=== PATIENT | female | born 1955 | race Caucasian/White ===

== ENCOUNTER → 2016-12-06 | Outpatient (CLI) | payer BC ==
[~2016-12-06] MED LIST: ATOR10TA20 PO; DEXA4TAB PO; DOCU-132 PO; FISH1CAP2 PO; HYDR-2164 PO; HYDR-3989 PO; HYDR-4246 PO; IOHEXOL 300 MG/ML 100ml INJECTION ONE; MAGN250T33 PO; MELO-267 PO; MULT-806 PO; NORMAL SALINE 100 ML ONE; POTA99TA4 PO; SALINE FLUSH 10ml SYRINGE ONE; VENL-68 PO; [UNRECOGNIZED DRUG - CODE] PO; [UNRECOGNIZED DRUG - CODE] PO
--- NOTE | 2016-12-06 14:17 | DI ---
Indication: ITS.REASON: C50.211 BREAST CA; N95.1 Menopausal and female climacteric states PROCEDURE: CT CHEST/ABDOMEN W/C: Comparison: None Technique: Axial CT images were performed through the chest, abdomen after the administration of intravenous contrast. Coronal and sagittal two-dimensional reformats. Automated Exposure Control and Iterative Reconstruction dose reducing techniques were utilized. Contrast: Omnipaque [address] scan was performed using radiation dose-reduction techniques. CT CHEST FINDINGS: Postsurgical changes of right mastectomy. Left-sided chest port is in place. Cardiovascular: The heart size is normal. No pericardial effusion is present. Lymph nodes: There are no enlarged axillary, hilar, or mediastinal lymph nodes. Lungs: The lungs are normal. Bones: There are no suspicious or destructive osseous lesions. Anterior cervical disc fusion is noted. IMPRESSION: 1. Postoperative changes of right mastectomy. 2. No evidence for thoracic sanchez or pulmonary metastases. CT ABDOMEN AND PELVIS FINDINGS: CT ABDOMEN LUNG BASES: Unremarkable LIVER: There is a nodular density projecting off the posterior medial margin of the right hepatic lobe. The nodule measures 2.1 x 2.9 cm with question of mild enhancement. The density is just superior to the right kidney. Recommend abdominal ultrasound to further evaluate the hepatic lesion. Three-phase contrast-enhanced CT scan may also be beneficial to further evaluate. CT-guided biopsy could be done if clinically indicated. SPLEEN: Unremarkable. GALLBLADDER: Unremarkable. PANCREAS: Unremarkable. ADRENAL GLANDS: Unremarkable. KIDNEYS: Unremarkable. AORTA: Unremarkable. LYMPH NODES: Unremarkable. STOMACH BOWEL LOOPS: Unremarkable. PERITONEAL CAVITY: There is no abdominal or pelvic inflammatory mass or ascites. OSSEOUS STRUCTURES: No suspicious or destructive osseous lesions are identified. IMPRESSION: 1. There is a nodular density projecting off the posterior medial margin of the right hepatic lobe measuring 2.1 x 2.9 cm with question of mild enhancement. The structure is located superior to the right kidney. Recommend abdominal ultrasound to further evaluate. A three-phase contrast-enhanced CT scan may be beneficial to further evaluate as well. CT-guided biopsy could be done if clinically indicated. 2. There is no abdominal lymphadenopathy. .
--- NOTE | 2016-12-06 20:42 | ECHOF ---
ECHOCARDIOGRAM DATE OF PROCEDURE December 06, 2016 This is a two-dimensional echo with spectral Doppler, color-flow and M-mode. It was obtained in a patient with cancer, on chemotherapy. Left atrial dimension is normal. Left ventricular end-diastolic dimension is normal. Left ventricular wall thickness is normal. LV systolic function is normal with ejection fraction of 65%. Right atrium is normal. Right ventricle is normal. Aortic root dimension is normal. Mitral, aortic, tricuspid, pulmonary valves are morphologically normal with mild aortic insufficiency and mild tricuspid regurgitation with normal estimated pulmonary artery systolic pressure of 21. There is no pericardial effusion. IMPRESSION 1. Normal LV systolic function with ejection fraction of about 65%. 2. Mild aortic insufficiency. 3. Mild tricuspid regurgitation with normal estimated pulmonary artery systolic pressure of 21. MTDD
== END ==
LOC: IMA 10:44
PROVIDERS: ATTEND Internal Medicine Medical Oncology
DX: C50.211 Malignant neoplasm of upper-inner quadrant of right female breast (principal); I08.2 Rheumatic disorders of both aortic and tricuspid valves; K76.9 Liver disease, unspecified; N95.1 Menopausal and female climacteric states; Z79.811 Long term (current) use of aromatase inhibitors; Z90.11 Acquired absence of right breast and nipple
CPT/HCPCS: 71260; 74160; 77080; 93306; J7050; Q9967